=== PATIENT | female | born 1960 | race Caucasian/White ===

== ENCOUNTER 2016-12-31 18:00 | Emergency (ER) | payer MEDICAID ==
[~2016-12-31] VITALS: Ht 160 cm; Wt 44.7 kg
[~2016-12-31 18:00] MED LIST: GUAI5SYR PO; LEVO750T26 PO; PRED20TA PO
[2016-12-31 18:02] VITALS: BP 144/72
[2016-12-31] MEDS ORDERED: IBUPROFEN 200 MG TABLET PO ONE (20:00)
== END 2016-12-31 20:30 | disposition home or self-care (01) ==
LOC: ED 20:15
DX: L02.511 Cutaneous abscess of right hand (principal)
CPT/HCPCS: 26010

== ENCOUNTER 2017-01-04 14:01 | Emergency (ER) | payer MEDICAID ==
[~2017-01-04] VITALS: Ht 160 cm; Wt 42.7 kg
[2017-01-04 14:11] VITALS: BP 112/78
[2017-01-04] MEDS ORDERED: DIPHENHYDRAMINE 25 MG CAPSULE PO ONE (15:30)
== END 2017-01-04 15:26 | disposition home or self-care (01) ==
LOC: ED 15:15
DX: Z76.0 Encounter for issue of repeat prescription (principal); R21 Rash and other nonspecific skin eruption; L29.9 Pruritus, unspecified
CPT/HCPCS: 99282

== ENCOUNTER 2017-01-28 08:16 | Emergency (ER) | payer MEDICAID ==
[~2017-01-28] VITALS: Ht 160 cm; Wt 41.3 kg
[2017-01-28 08:20] VITALS: BP 134/82
[2017-01-28] MEDS ORDERED: BACITRACIN ZINC OINT 500U/GM, 0.9 GM ONE ×2 (09:58→10:18)
== END 2017-01-28 10:30 | disposition home or self-care (01) ==
LOC: ED 09:09
DX: S60.511A Abrasion of right hand, initial encounter (principal); S60.512A Abrasion of left hand, initial encounter; J44.9 Chronic obstructive pulmonary disease, unspecified; F17.210 Nicotine dependence, cigarettes, uncomplicated; F19.10 Other psychoactive substance abuse, uncomplicated; X58.XXXA Exposure to other specified factors, initial encounter; Y93.89 Activity, other specified; Y92.89 Other specified places as the place of occurrence of the external cause; Y99.8 Other external cause status; Z59.0 Homelessness
CPT/HCPCS: 99283

== ENCOUNTER 2017-04-20 16:39 | Emergency (ER) | payer MEDICAID ==
[~2017-04-20] VITALS: Ht 160 cm; Wt 47.7 kg
[2017-04-20] MEDS ORDERED: KETOROLAC 30 MG/1 ML ONE (18:54)
[2017-04-20] MEDS ORDERED: KETOROLAC 30 MG/1 ML IM ONE (19:00)
[2017-04-20 20:11] VITALS: BP 126/50
== END 2017-04-20 21:02 | disposition home or self-care (01) ==
LOC: ED 21:00
DX: S93.601A Unspecified sprain of right foot, initial encounter (principal); S60.221A Contusion of right hand, initial encounter; S60.222A Contusion of left hand, initial encounter; G89.11 Acute pain due to trauma; J44.9 Chronic obstructive pulmonary disease, unspecified; Y04.8XXA Assault by other bodily force, initial encounter; Y93.89 Activity, other specified; Y92.89 Other specified places as the place of occurrence of the external cause; Y99.8 Other external cause status
CPT/HCPCS: 73130; 73610; 96372; 99284; J1885

== ENCOUNTER 2017-05-29 00:07 | Emergency (ER) | payer MEDICAID ==
[~2017-05-29] VITALS: Ht 160 cm; Wt 42.0 kg
[2017-05-29 01:55] VITALS: BP 92/57
== END 2017-05-29 02:06 | disposition home or self-care (01) ==
LOC: ED 01:58
DX: J20.8 Acute bronchitis due to other specified organisms (principal); J44.9 Chronic obstructive pulmonary disease, unspecified
CPT/HCPCS: 71046; 93005; 99284

== ENCOUNTER 2017-06-04 18:24 | Emergency (ER) | payer MEDICAID ==
[~2017-06-04] VITALS: Ht 160 cm; Wt 44.0 kg
[2017-06-04 18:26] VITALS: BP 104/66
[2017-06-04] MEDS ORDERED: AZITHROMYCIN 500 MG TABLET ONE (19:36)
[2017-06-04] MEDS ORDERED: CEFTRIAXONE 1,000 MG ONE (19:36)
[2017-06-04] MEDS ORDERED: AZITHROMYCIN 500 MG TABLET PO ONE (20:00)
[2017-06-04] MEDS ORDERED: CEFTRIAXONE 1,000 MG IM ONE (20:00)
== END 2017-06-04 20:13 | disposition home or self-care (01) ==
LOC: ED 19:45
DX: J15.9 Unspecified bacterial pneumonia (principal); J44.9 Chronic obstructive pulmonary disease, unspecified
CPT/HCPCS: 71046; 93005; 99284

== ENCOUNTER 2017-07-09 09:50 | Emergency (ER) | payer MEDICAID ==
[~2017-07-09] VITALS: Ht 160 cm; Wt 43.9 kg
[2017-07-09 12:15] VITALS: BP 120/78
== END 2017-07-09 12:17 | disposition home or self-care (01) ==
LOC: ED 11:37
DX: J18.0 Bronchopneumonia, unspecified organism (principal); J44.9 Chronic obstructive pulmonary disease, unspecified; B86 Scabies
CPT/HCPCS: 71046; 93005; 99284

== ENCOUNTER 2018-05-19 17:36 | Emergency (ER) | payer MEDICAID ==
[~2018-05-19] VITALS: Ht 160 cm; Wt 50.0 kg
--- NOTE | 2018-05-19 18:30 | NUR ---
PT RESTING ON GURNEY, RR EVEN AND UNLABORED. PT ON CONT SPO2 AND BP MONITOR, VSS. AWAITING ORDERS
--- NOTE | 2018-05-19 18:52 | NUR ---
DR REAVES AT BEDSIDE
[2018-05-19 19:29] LABS: BASOPHILS # (AUTO) 0.01 x10^3/uL (0-0.1); BASOPHILS % (AUTO) 0 % (0-1); EOSINOPHILS # (AUTO) 0.13 x10^3/uL (0-0.4); EOSINOPHILS % (AUTO) 2 % (1-7); LYMPHOCYTES # (AUTO) 2.27 x10^3/uL (1-3.4); LYMPHOCYTES % (AUTO) 39 % (22-44); MD NO; MEAN CORPUSCULAR HEMOGLOBIN 33.2 pg (27.0-34.8); MEAN CORPUSCULAR HGB CONC 34.5 g/dL (32.4-35.8); MEAN CORPUSCULAR VOLUME 96.3 fL (80-100); MEAN PLATELET VOLUME 9.1 fL (7.4-10.4); MONOCYTES % (AUTO) 7 % (2-9); NEUTROPHILS # (AUTO) 3.02 x10^3/uL (1.8-6.8); NEUTROPHILS % (AUTO) 52 % (42-75); PLATELET COUNT 173 x10^3/uL (130-400); RED BLOOD COUNT 4.03 x10^6/uL (3.82-5.3); RED CELL DISTRIBUTION WIDTH 13.2 % (9.6-15.2)
[2018-05-19] MEDS ORDERED: SODIUM CHLORIDE FLUSH 10ML SYR IVF ONE (19:30)
[2018-05-19] MEDS ORDERED: SODIUM CHLORIDE 0.9% 1,000ML IVBOLUS ONE (19:30)
--- NOTE | 2018-05-19 19:37 | NUR ---
PT RESTING ON GURNEY, RR EVEN AND UNLABORED. PT ON CONT SPO2 AND BP MONITOR. DENIES NEEDS OR PAIN ATT.
[2018-05-19 19:38] LABS: ALBUMIN 3.3 g/dL (3.4-5.0); ANION GAP 10 mmol/L (5-15); CALCIUM 8.6 mg/dL (8.5-10.1); CHLORIDE 110 mmol/L (98-107); CREATININE 0.52 mg/dL (0.55-1.02)
--- NOTE | 2018-05-19 20:21 | NUR ---
PT'S BP CONTINUES TO BE LOW, DR. REAVES NOTIFIED. ANOTHER LITER BOLUS ORDERED
[2018-05-19] MEDS ORDERED: SODIUM CHLORIDE 0.9%, 500ML IVBOLUS ONE (20:30)
[2018-05-19 20:41] VITALS: BP 96/63
--- NOTE | 2018-05-19 20:41 | NUR ---
PT'S BP HAS IMPROVED WITH SECOND LITER, DR. REAVES NOTIFIED
--- NOTE | 2018-05-19 20:51 | NUR ---
DR REAVES AT BEDSIDE UPDATING PT ON POC
== END 2018-05-19 21:16 | disposition home or self-care (01) ==
LOC: ED 21:10
DX: R06.00 Dyspnea, unspecified (principal); I95.9 Hypotension, unspecified; R09.02 Hypoxemia; J44.9 Chronic obstructive pulmonary disease, unspecified
CPT/HCPCS: 36415; 71045; 80048; 82040; 83605; 85025; 87040; 93005; 96360; 96361; 99284; J7030; J7040

== ENCOUNTER 2018-05-20 14:46 | Emergency (ER) | payer MEDICAID ==
[~2018-05-20] VITALS: Ht 160 cm; Wt 47.4 kg
--- NOTE | 2018-05-20 15:02 | NUR ---
FIRST CONTACT WITH PT. PT STATES, "I WAS HERE LAST NIGHT. I TOOK THIS PAPER TO THE PHARMACY, BUT THEY WOULDN'T GIVE ME ANY ANTIBIOTICS. I KNOW I NEED ANTIBIOTICS, I HAVE GREEN AND YELLOW SHIT I AM COUGHING UP. THIS IS NO COLD, THERE IS NO WAY." NADN. PT HAS STEADY GAIT AND BALANCE WHILE CHANGING IN TO GOWN. ALL SAFETY MEASURES IN PLACE. PT CONNECTED TO NIBP AND CONTINOUS PULSE OX. PT DENINES CP, N/V/D. PT STATES, "I GET SHARP PAINS RIGHT HERE WHEN I COUGH (LOWER ANTERIOR LOBES OF LUNGS). I GET SHORT OF BREATH FROM COUGHING."
[2018-05-20] MEDS ORDERED: DEXAMETHASONE 4 MG TABLET PO ONE (16:00)
[2018-05-20] MEDS ORDERED: DEXAMETHASONE 4 MG TABLET ONE (16:03)
[2018-05-20 16:06] VITALS: BP 124/80
--- NOTE | 2018-05-20 16:16 | NUR ---
Patient given discharge instructions and they have confirmed that they understand the instructions. Patient ambulatory with steady gait. PT LEFT WITH ALL PERSONAL BELONGINGS, PRESCRIPTIONS, AND DISCHARGE PAPERWORK.
== END 2018-05-20 16:17 | disposition home or self-care (01) ==
LOC: ED 15:24
DX: J44.1 Chronic obstructive pulmonary disease with (acute) exacerbation (principal); F17.200 Nicotine dependence, unspecified, uncomplicated; Z90.49 Acquired absence of other specified parts of digestive tract
CPT/HCPCS: 99283